=== PATIENT | female | born 1995 | race Two or more races ===

== ENCOUNTER 2021-01-22 12:24 | Emergency (ER) | payer OTHER ==
[~2021-01-22] VITALS: Ht 154.9 cm; Wt 66.3 kg
[2021-01-22 13:05] LABS: BASO % 0.3 % (0.0-1.0); EOS % 0.3 % (0.0-3.0); HEMATOCRIT 41.7 % (36.0-47.0); HEMOGLOBIN 13.1 g/dl (12.0-15.5); LYMPH # 1.6 10^3/uL (1.5-5.0); LYMPH % 12.2 % (24.0-44.0); MEAN CORPUSCULAR HGB CONC 31.4 g/dl (32.0-36.5); MEAN CORPUSCULAR VOLUME 92.5 fl (80.0-96.0); MONO # 0.9 10^3/uL (0.0-0.8); NEUTROPHILS # 10.3 10^3/uL (1.5-8.5); PLATELET COUNT, AUTOMATED 214 10^3/uL (150-450); RED BLOOD COUNT 4.51 10^6/uL (4.00-5.40); WHITE BLOOD COUNT 12.9 10^3/uL (4.0-10.0)
[2021-01-22] MEDS ORDERED: ACETAMINOPHEN 500 MG TAB PO ONE (13:05)
[2021-01-22 13:30] LABS: ALBUMIN 4.6 GM/DL (3.2-5.2); ALT/SGPT 19 U/L (12-78); BILIRUBIN,DIRECT 0.1 MG/DL (0.0-0.2); BILIRUBIN,TOTAL 0.4 MG/DL (0.2-1.0); LIPASE 181 U/L (73-393); TOTAL PROTEIN 8.4 GM/DL (6.4-8.2)
[2021-01-22 13:34] LABS: HCG, SERUM QUALITATIVE NEGATIVE (NEGATIVE)
--- NOTE | 2021-01-22 13:47 | REP ---
INDICATION: r/o constipation. COMPARISON: None. TECHNIQUE: AP view abdomen and pelvis. FINDINGS: There is mild scattered fecal material and air seen throughout the colon. No significantly dilated bowel loops are seen. No abnormal calcifications are visualized. The visualized osseous structures are unremarkable. IMPRESSION: Unremarkable KUB, mild air and fecal material scattered throughout the colon. <Electronically signed by Darío Chi > 01/22/21 [id number]
[2021-01-22] MEDS ORDERED: KETOROLAC 30 MG/ML 1ML VIAL IV ONE (14:25)
--- NOTE | 2021-01-22 14:41 | REP ---
INDICATION: LLQ pain radiating to groin, hematuria, r/o kidney stone COMPARISON: None TECHNIQUE: Axial noncontrast images from the lung bases to the pubic symphysis with coronal and sagittal reformations. This CT examination was performed using the following dose reduction techniques: Automated exposure control, adjustment of mA and/or kv according to the patient's size, and use of iterative reconstruction technique. FINDINGS: Acute left-sided obstructive uropathy with edematous enlargement to the left kidney, mild hydronephrosis and perinephric/periureteral stranding is appreciated secondary to a 3 mm calculus at the ureterovesical junction (series 201; image 119). The right kidney demonstrates 4 mm non-obstructing upper pole calculus without hydronephrosis. Liver, spleen, pancreas, gallbladder, and bilateral adrenal glands are normal. The enteric system is without obstruction or acute inflammatory process. Normal terminal ileum and appendix are identified in the right lower quadrant. Pelvis demonstrates relatively normal appearance of the bladder with left UVJ stone as described above. Normal uterus/adnexa noted. No ascites. No free air. No obvious adenopathy. Abdominal aorta without aneurysm. Musculoskeletal structures without acute osseous abnormality. Lung bases are clear. IMPRESSION: 1. Acute left-sided obstructive uropathy as described above with a 3 mm calculus at the left ureterovesical junction/bladder trigone. 2. 4 mm nonobstructing right renal calculus. <Electronically signed by Solitario Dillon > 01/22/21 [id number]
[2021-01-22] MEDS ORDERED: FLOM0.4C39 PO ×2 (14:54→15:00)
[2021-01-22] MEDS ORDERED: KETO10TAB PO ×2 (14:54→15:00)
[2021-01-22 15:06] VITALS: BP 118/81
== END 2021-01-22 15:09 | disposition home or self-care (01) ==
LOC: M ED 12:24
DX: N20.2 Calculus of kidney with calculus of ureter (principal); N23 Unspecified renal colic
CPT/HCPCS: 36415; 74018; 74176; 80047; 80076; 81001; 83690; 84703; 85025; 87086; 96374; 99284; J1885

== ENCOUNTER 2021-09-23 10:55 | Emergency (ER) | payer OTHER ==
[~2021-09-23] VITALS: Ht 157.5 cm; Wt 62.8 kg
[~2021-09-23 10:55] MED LIST: FLOM0.4C39 PO; KETO10TAB PO
--- OUTSIDE RECORDS SUMMARY | 2021-09-23 11:00 | CCD ---
Author Author [facility] Organization [facility] Address Unknown Phone Unavailable Care Team Providers Care Change Booth Attendant Name Role Phone NO, PCP Unavailable Unavailable Graham Eugene MD Unavailable Unavailable Graham Eugene MD Unavailable Unavailable Graham Eugene MD Unavailable Unavailable Graham Eugene MD Unavailable Unavailable Graham Eugene MD Unavailable Unavailable Graham Eugene MD Unavailable Unavailable Re-disclosure Warning The records that you are about to access may contain information from federally-assisted alcohol or drug abuse programs. If such information is present, then the following federally mandated warning applies: This information has been disclosed to you from records protected by federal confidentiality rules (42 CFR part 2). The federal rules prohibit you from making any further disclosure of this information unless further disclosure is expressly permitted by the written consent of the person to whom it pertains or as otherwise permitted by 42 CFR part 2. A general authorization for the release of medical or other information is NOT sufficient for this purpose. The Federal rules restrict any use of the information to criminally investigate or prosecute any alcohol or drug abuse patient.The records that you are about to access may contain highly sensitive health information, the redisclosure of which is protected by Article 27-F of the [place] State Public Health law. If you continue you may have access to information: Regarding HIV / AIDS; Provided by facilities licensed or operated by the [facility] Office of Mental Health; or Provided by the [facility] Office for People With Developmental Disabilities. If such information is present, then the following [facility] mandated warning applies: This information has been disclosed to you from confidential records which are protected by state law. State law prohibits you from making any further disclosure of this information without the specific written consent of the person to whom it pertains, or as otherwise permitted by law. Any unauthorized further disclosure in violation of state law may result in a fine or halfway sentence or both. A general authorization for the release of medical or other information is NOT sufficient authorization for further disc losure. Encounters Encounter Providers Location Date Indications Data Source(s ) Emergency Attender: Graham Eugene MDConsultant: PCP NO 09/13/2021 09:07:00 AM EDT - 09/13/2021 10:41:00 AM EDT [facility] Patient discharged. Immunizations Vaccine Date Status Description Data Source(s) COVID-19 VACCINE Pfizer 04/04/2021 12:00:00 AM EDT completed [place] Vaccine Series Complete: NOThis Data was Submitted to [facility]. Medications No Information Insurance Providers Payer name Policy type / Coverage type Policy ID Covered alliance party ID Covered alliance party's relationship to galindo Policy Galindo Plan Information [facility]LY [facility] ACTIVE DUTY [id number] SP [id number] [facility] HUMANA - O/P [id number] 18 [id number] Problems, Conditions, and Diagnoses Code Display Name Description Problem Type Effective Dates Data Source(s) K2900 Acute gastritis without bleeding Acute gastritis without bleeding Diagnosis 09/13/2021 09:07:00 AM EDT [facility] R1013 Epigastric pain Epigastric pain Diagnosis 09/13/2021 09:0 7:00 AM EDT [facility] Surgeries/Procedures No Information Results ID Date Data Source [id number] 09/13/2021 09:07:00 AM EDT [facility] 1 OrderSheet [facility] Emergency Department [address] [place] [address] Phone #: ext- [phone] 09/13/2021 09:00 Patient: BROOKLYNN LION Sex: F : 1995 Age: 26yWEIGHT:63.5 kg (S) HEIGHT:62 inches (S) BMI:25.6ALLERGIES: No Known Drug AllergyCHIEF COMPLAINT: abdominal painDIAGNOSIS: GastritisLAB ORDERSOrder Description Priority Entered Acknowledged InitialedUA Reflex to UA 09:17 09/13/2021 09:17 Ace,Culture Kristi Bello R.N. R.N.; Verbal order per; Graham EugeneHCG Urine Qual STAT 09:17 09/13/2021 09:17 Ace Bello Jennifer Jennifer R.N. R.N.; Verbal order per; rGaham EugeneCMP STAT 09:38 09/13/2021 Ack'd: 09:41 09:41 Ana Bello Jack ; Kristi BelloN. R.N.Lipase STAT 09:38 09/13/2021 Ack'd: 09:41 09:41 Ana Bello Jack ; Kristi BelloN. R.NTitusCBC w Diff STAT 09:38 09/13/2021 Ack'd: 09:41 09:41 Ana Bello Jack ; Kristi Bello R.N. R.NTitusDIAGNOSTIC STUDY ORDERSOrder Description Priority Entered Acknowledged InitialedUS Gall Bladder STAT 09:38 09/13/2021 Ack'd: 09:41 10:05 Ace,(Oxygen?(No)) Graham Eugene ; Kristi BelloNTitus R.NTitus Reason for Study: RUQ PainMEDICATION/IV/DRIP/FLUID ORDERSOrder Description Priority Entered Acknowledged Initialed 2 OrderSheet [facility] Emergency Department [address] [place] [address] Phone #: ext- [phone] 09/13/2021 09:00 --------- Patient: BROOKLYNN LION Sex: F : 1995 Age: 26yLidocaine Viscous 09:38 09/13/2021 09:41 Ace,PO 10 mL (NOW x1) Graham Eugene ; Kristi MondragonMaalox PO 30 mL 09:38 09/13/2021 09:41 Ana Bello Jack ; Kristi MondragonGENERAL ORDERSOrder Description Priority Entered Acknowledged Initialed[Electronically signed by Kristi Bello R.N. (10:41 09/13/2021)][Electronically signed by Graham Eugene (14:52 )][Electronically locked by Kristi Bello R.N. (10:41 09/13/2021)] Name Value Range Interpretation Code Description Data Chasity rce(s) Supporting Document(s) ID Date Data Source [id number] 09/13/2021 09:07:00 AM EDT [facility] 1 Medication Reconciliation Report [facility] Emergency Department [address] [place] [address] Phone #: ext- [phone] 09/13/2021 09:00 Patient: BROOKLYNN LION Sex: F : 1995 Age: 26yWeight: 63.5 kgHeight/Length: 62 in.BMI: 25.6ALLERGIES: No Known Drug AllergyThe patient's Home Medications are listed below:NONE.The source(s) of the original Home Medication information:patientThe following Medications were given to the patient in the Emergency Department:Lidocaine Viscous [PO] PO 10 mL, administered: 09:41 09/13/2021Maalox [PO] PO 30 mL, administered: 09:41 09/13/2021The following Medications were prescribed to the patient:omeprazole 20 mg tablet,delayed release Take 1 tablet once a day -- Dispense 25 tablet. Refills: 0.Substitution permitted.Pharmacy - [id number] - [address], [place] [phone]. . -- Graham Eugene Name Value Range Interpretation Code Description Data Chasity rce(s) Supporting Document(s) ID Date Data Source [id number] 09/13/2021 09:07:00 AM EDT [place] [address] Medication Administration Record [facility] Emergency Department [address] [place] [address] Phone #: ext- [phone] 09/13/2021 09:00 Patient: BROOKLYNN LION Sex: F : 1995 Age: 26yWeight: 63.5 kgHeight/Length: 62 inBMI: 25.6ALLERGIES: No Known Drug Allergy Date/Time Medication Administered Medication OrderedGiven LIDOCAINE VISCOUS [PO] Lidocaine Viscous PO 10 mL09:41 09/13/2021 Dose: 10 mL Oral Suspension PO (NOW x1)Kristi Bello R.N.Given MAALOX [PO] (CALCIUM CARBONATE Maalox PO 30 mL09:41 09/13/2021 ANTACID)Kristi Bello R.N. Dose: 30 mL Oral Suspension PO Name Value Range Interpretation Code Description Data [facility] Supporting Document(s) ID Date Data Source [id number] 09/13/2021 09:07:00 AM EDT [facility] 1 General Instructions [facility] Emergency Department [address] [place] [address] Phone #: ext- [phone] 09/13/2021 09:00 Patient: BROOKLYNN LION Sex: F : 1995 Age: 26yAcute gastritis. No alcoholic gastritis or hemorrhagic gastritis.INSTRUCTIONSWarnings: Further evaluation is necessary.GENERAL WARNINGS: Return or contact your physician immediately if your condition worsens orchanges unexpectedly, if not improving as expected, or if other problems arise.Your Current Medications: .No home medication.Prescription Medications:omeprazole 20 mg tablet,delayed release Take 1 tablet once a day -- Dispense 25 tablet. Refills: 0.Substitution permitted.[id number] - [address], [place] [id number]. .Understanding of the discharge instructions verbalized by patient.Follow-up with: [facility] Respective Team [place], , , [address], , [place], [address] Follow up in three days if not better. Call for an appointment. ADDITIONAL INFORMATIONGastritis (Adult) 2 General Instructions [facility] Emergency Department [address] [place] [address] Phone #: ext- [phone] 09/13/2021 09:00 Patient: BROOKLYNN LION Sex: F : 1995 Age: 26yGastritis is inflammation and irritation of the stomach lining. You can have it for a short time (acute) chirag long lasting (chronic). Infection with bacteria called H pylori most often causes gastritis. More thana third of people in the have these bacteria in their bodies. In many cases, H pylori causes noproblems or symptoms. In some people, though, the infection irritates the stomach lining and causesgastritis. H. pylori may be diagnosed through blood, stool, or breath tests, we well as through biopsyduring an endoscopy. Other causes of stomach irritation include drinking alcohol, smoking or jamie wingtobacco, or taking pain-relieving medicines called NSAIDs (such as aspirin or ibuprofen). Certaindrugs (such as cocaine) and immune conditions can also cause gastritis.Symptoms of gastritis can include: Belly pain or bloating Feeling full quickly Loss of appetite Nausea or vomiting Vomiting blood or having black stools Feeling more tired than usualAn inflamed and irritated stomach lining is more likely to develop a sore called an ulcer. To helpprevent this, gastritis should be treated.Home care 3 General Instructions [facility] Emergency Department [address] [place] [address] Phone #: ext- [phone] 09/13/2021 09:00 Patient: BROOKLYNN LION Sex: F : 1995 Age: 26yIf needed, our healthcare provider may prescribe medicines. If you have H pylori infection, treating itwill likely relieve your symptoms. Other changes can help reduce stomach irritation and help it heal. If you have been prescribed medicines for H pylori infection, take them as directed. Take all of the medicine until it is finished or your healthcare provider tells you to stop, even if you feel better. Your healthcare provider may advise you not to take NSAIDs. If you take daily aspirin for your heart or other medical reasons, do not stop without talking to your healthcare provider first. Don't drink alcohol. Stop smoking. Smoking can irritate the stomach and delay healing. As much as possible, stay away from second hand smoke.Follow-up careFollow up with your healthcare provider, or as advised by our staff. You may need testing to check forinflammation or an ulcer.When to seek medical adviceCall your healthcare provider for any of the following: Stomach pain that gets worse or moves to the lower right belly (appendix area) Chest pain that appears or gets worse, or spreads to the back, neck, shoulder, or arm Frequent vomiting (can't keep down liquids) Blood in the stool or vomit (red or black in color) Feeling weak or dizzy Shortness of breath Unexplained weight loss Fever of 100.4F (38C) or higher, or as directed by your healthcare provider [employer]. [address] [place] [address], [place] [address]. All rights reserved. This information is not intended as asubstitute for professional medical care. Always follow your healthcare professional's instructions. You have been given the following additional information: Gastritis (Adult) 4 General Instructions [facility] Emergency Department [address] [place] [address] Phone #: ext- [phone] 09/13/2021 09:00 Patient: BROOKLYNN LION Sex: F : 1995 Age: 26y(Electronically signed by Graham Eugene 09/13/2021 14:52) Name Value Range Interpretation Code Description Data Chasity rce(s) Supporting Document(s) ID Date Data Source [id number] 09/13/2021 09:07:00 AM EDT [facility] 1 Clinical Report - Nurses [facility] Emergency Department [address] [place] [address] Phone #: [phone]- [phone] 09/13/2021 09:00 Patient: BROOKLYNN LION Sex: F : 1995 Age: 26yTRIAGEArrived by private vehicle. Historian: patient. Unaccompanied.Triage time: late entry - 09:00 09/13/2021. Acuity: LEVEL 3.Chief Complaint: ABDOMINAL PAIN.Alert. No acute distress.Onset. (3 days ago). ( Pt states for the last 3 days she has been having upper abdominal pain with s omenausea; Pt states she has had similar symptoms in the past but usually goes away and this time is moreconstant and is waking her up out of her sleep. Pt states she still has her gallbladder.). She has hadnausea. She has had vomiting ("dry heaving"). 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 SEPSIS SCREEN NEGATIVE. No suspected or confirmedsigns of infection present. (09:18 09/13/2021). --09:18 09/13/21 Kristi Bello R.N.09:13 09/13/21. BP: 149/99. MAP: 115. HR: 88. RR: 18. O2 saturation: 100% on room air. Temp: 98.5 F(oral). Pain level now 08/26. --09:18 09/13/21 Kristi Bello R.N.Weight: 63.5 kg stated. Height/Length: 62 inches Per Patient. BMI: 25.6. --09:00 09/13/21 Kristi Bello R.N.MedicationsNone. --09:15 09/13/21 Kristi Bello R.N.AllergiesNo Known Drug Allergy. --09:15 09/13/21 Kristi Bello R.N.PRO BLEMS:no known problems.Medication/allergy information source: the patient. --09:18 09/13/21 Kristi Bello R.N.ADDITIONAL SURGERIES:Dental Surgery.Hip Surgery (X2). --09:16 09/13/21 Kristi Bello R.N. 2 Clinical Report - Nurses [facility] Emergency Department [address] [place] [address] Phone #: ext- [phone] 09/13/2021 09:00 Patient: BROOKLYNN LION Sex: F : 1995 Age: 26y History PAST MEDICAL HX: Immunizations: up-to-date and (Pt has had both COVID-19 vaccine). Last normal menstrual period- 08/17/2021. SOCIAL HX: Never smoker. No alcohol use or drug use. No recent travel. No known contact with a sick individual. She was offered HIV testing but declined. Patient education was provided. She was offered hepatitis C testing but declined. Patient education was provided. ( COVID screen negative). She has not traveled outside the [place] Infectious disease exposure: No infectious disease exposure. The patient was not exposed to Coronavirus. Mask placed on patient. Patient is not a known carrier of tuberculosis, hepatitis, HIV, MRSA or VRE. Patient is not a known carrier of CRE. SELF HARM ASSESSMENT: Self harm assessment was performed. The patient answered "no" to the question(s) "Do you have thoughts of harming or killing yourself?" and "Do you have a plan for harming or killing yourself?". ABUSE ASSESSMENT: Abuse assessment. The patient had positive responses to the question(s) "Do you feel safe in your home?". Abuse denied. No suspicion of abuse. No report of abuse. NUTRITIONAL RISK ASSESSMENT: The nutritional risk assessment revealed no deficiencies. FUNCTIONAL ASSESSMENT: Functional asse ssment: no impairments noted. LEARNING NEEDS ASSESSMENT: The learning needs assessment revealed no barriers. FALL RISK ASSESSMENT: Fall risk assessment completed. No risk factors identified. SKIN INTEGRITY ASSESSMENT: Skin integrity risk assessment completed. No skin integrity risk identified. --09:18 09/13/21 Kristi Bello R.N. FAMILY HX: No significant family medical history. --09:42 09/13/21 Graham Eugene. Interventions Identification band on patient. --09:18 09/13/21 Kristi Bello R.N.PHYSICAL ASSESSMENTGENERAL / NEURO / PSYCH: Alert. Oriented X 4. Appears in pain.HEENT: Mucous membranes are pink.RESPIRATORY: Respirations not labored. Breath sounds within normal limits.CVS: Capillary refill less than 2 seconds.GI / : The patient has had nausea. Emesis noted. (please see triage note). Abdomen soft.Abdominal tenderness in the epigastric area. Guarding present. No rebound tenderness. Bowel soundswithin normal limits. No diarrhea. ( Last BM yesterday and was "like gustabo" per pt).SKIN: Skin is warm and dry. --09:20 09/13/21 Kristi Bello R.N. 3 Clinical Report - Nurses [facility] Emergency Department [address] [place] [address] Phone #: ext- [phone] 09/13/2021 09:00 Patient: BROOKLYNN LION Sex: F : 1995 Age: 26yNURSING PROGRESS NOTESNIBP monitor and pulse oximeter placed on patient; monitor alarms on. Patient gowned. Reassurancegiven. Three patient identifiers checked. Call light placed in reach. Side rails up x 2. Bed placed inlowest position. Brakes of bed on. Patient ready for evaluation- ED physician notified. --09:17 09/13/21Kristi Bello R.N. Patient ID band checked for patient name and birthdate: patient confirmed. Instructions provided to collect clean catch urine and patient verbalized understanding. Clean catch urine collected; sample sent to lab for urinalysis and HCG. Specimen labeled in the presence of the patient. --09:17 09/13/21 Kristi Bello R.N. late entry - 09:40 09/13/21. Patient transported to sonogram by wheelchair with mask and qc lab technician. --10:05 09/13/21 Nadeem Bello R.N. 09:41 09/13/2021 Lidocaine Viscous PO Oral Suspension 10 mL given. Allergies verified and confirmed 5 rights. Information reviewed with patient including reason for taking this medication, signs of allergic reaction and precautions. Verbalizes understanding. --09:41 09/13/21 Kristi Bello R.N. 09:41 09/13/2021 Maalox (Calcium Carbonate Antacid) PO Oral Suspension 30 mL given. Allergies verified and confirmed 5 rights. Information reviewed with patient including reason for taking this medication, signs of allergic reaction and precautions. Verbalizes understanding. --09:41 09/13/21 Kristi Bello R.N. late entry - 10:00 09/13/21. Patient returned from sonogram by wheelchair with mask and qc lab technician. --10:05 09/13/21 Kristi Bello R.N. 10:00 09/13/21. BP: 126/94. MAP: 104. HR: 84. RR: 16. O2 saturation: 100% on room air. Pain level now: 0/10. --10:06 09/13/21 Kristi Bello R.N. Reassessment acuity: LEVEL 3. Rounding: Pain: assessed pain level and denies pain. Position: states comfortable. Proximity of possessions / care items: call light within easy reach. Plug ins: checked status of equipment in use; located all cords, tubes, and lines to prevent fall hazard. Set expectations: advised patient of rounding protocol timing and asked if they needed anything else at this time. Reassessment after medication administered. Pain gone now. She reports no complaints, she is calm and resting quietly and she has had no adverse reaction. Overall patient status is improved- she states feels better. GI / : The patient reports abdominal pain is still present but improving. Denies vomiting. --10:06 09/13/21 Kristi Bello R.N. 10:07 09/13/2021 Lidocaine Viscous PO Response: no adverse reaction pain is gone now. Symptoms have improved the patient feels better. --10:07 09/13/21 Kristi Bello R.N. 10:07 09/13/2021 Maalox PO Response: no adverse reaction pain is gone now. Symptoms have improved the patient feels better. --10:07 09/13/21 Kristi Bello R.N. 4 Clinical Report - Nurses [facility] Emergency Department [address] [place] [address] Phone #: ext- [phone] 09/13/2021 09:00 Patient: BROOKLYNN LION Sex: F : 1995 Age: 26yDISPOSITION / DISCHARGE Departure time: 10:41 09/13/2021. Condition at departure: stable. No learning barriers present. Discharge instructions provided and reviewed with the patient. Reviewed warnings (please see paper copy). Reviewed medication(s) side effects, precautions, dosing and course information. Prescription(s) sent electronically to pharmacy (Omeprazole). Patient verbalized understanding. Written instructions provided in Cambodian. ( F/U [facility]). The patient was discharged by the physician. She was discharged home and unaccompanied at time of discharge. She left ambulatory and via private vehicle. Patient driving. --10:41 09/13/21 Kristi Bello R.N. 10:37 09/13/21. BP: 132/93. MAP: 106. HR: 79. RR: 16. O2 saturation: 100% on room air. Temp: 98.5 F (temporal). Pain level now: 07/27. ED physician notified. --10:41 09/13/21 Kristi Bello R.N.Locked/Released at 09/13/2021 10:41 by Kristi Bello R.N. Name Value Range Interpretation Code Description Data Chasity rce(s) Supporting Document(s) ID Date Data Source [id number] 09/13/2021 09:07:00 AM EDT [facility] 1 Clinical Report - Physicians/Mid Levels [facility] Emergency Department [address] [place] [address] Phone #: ext- [phone] 09/13/2021 09:00 Patient: BROOKLYNN LION Sex: F : 1995 Age: 26y Time Seen: 09:32 09/13/2021. Arrived- By private vehicle. Historian- patient.HISTORY OF PRESENT ILLNESS Chief Complaint: ABDOMINAL PAIN. This started 2 days and is still present. It is described as "pain" and sharp. No radiation. It is described as located in the epigastric area. Modifying factors- worsened by food. The patient has had nausea. No loss of appetite, vomiting or diarrhea. No additional abdominal pain. (Two days of upper abdominal pain. She took tums and payton seltzer without any relief. No lower abdominal pain. No fever or chills. Some constipation but that is not abnormal for her). No recent travel. Similar symptoms previously. None. Recent medical care: Not recently seen/assessed.REVIEW OF SYSTEMSThe patient has had constipation, abdominal pain and constipation. No black stools, difficulty withurination or urination, pain with urination or fever. No headache, sore throat, blurred vision, chest pain ordifficulty breathing. No joint pain, skin rash, back pain or pain or weight loss. No cough, diarrhea, urinaryfrequency, hematuria or pelvic pain. No headache. Denies current . Last bowel movement-yesterday. All other systems reviewed and are negative.PAST HISTORYSee nurses notes. No history of peptic ulcer. Problems: no known problems. Additional Surgeries: Dental Surgery. Hip Surgery. (X2). Medications: None. Allergies: No Known Drug Allergy.SOCIAL HISTORYNever smoker. 2 Clinical Report - Physicians/Mid Levels [facility] Emergency Department [address] [place] [address] Phone #: ext- [phone] 09/13/2021 09:00 Patient: BROOKLYNN LION Sex: F : 1995 Age: 26yFAMILY HISTORYNo significant family medical history.ADDITIONAL NOTESThe nursing notes have been reviewed.PHYSICAL EXAMAppearance: Alert. Oriented X3. No acute distress.Eyes: Pupils equal, round and reactive to light.ENT: Nose normal. Pharynx normal.Neck: Normal inspection. Neck supple.CVS: Normal heart rate and rhythm. Heart sounds normal. Pulses normal.Respiratory: No respiratory distress. Breath sounds normal. Chest nontender.Abdomen: Soft. Moderate tenderness in the epigastric area. Bowel sounds normal. No organomegaly.No mass.Back: Normal inspection. No CVA tenderness.Skin: Skin warm and dry. Normal skin color. No rash. Normal skin turgor.Extremities: No lower extremity edema.Ne uro: Oriented X 3. No motor deficit. No sensory deficit.LABS, X-RAYS, AND EKGLaboratory Tests: CMP: ([place]: 09/13/2021 09:44) ( MsgRcvd 09/13/2021 10:10) Final results Test Result Flag Units (Reference) COMPREHENSIVE METABOLIC PANEL COMPREHENSIVE METABOLIC PANEL SODIUM 139 mEq/L (134 - 153) POTASSIUM 4.0 mEq/L (3.6 - 5.0) CHLORIDE 100 mEq/L (98 - 107) CO2 28 MEQ/L (22 - 30) GLUCOSE 92 MG/DL (70 - 99) BUN 13 MG/DL (7 - 21) CREATININE 0.7 MG/DL (0.7 - 1.5) BUN/CREAT 19 (8 - 27) TOTAL PROTEIN 7.3 G/DL (6.3 - 8.2) ALBUMIN 4.9 G/DL (3.9 - 5.0) GLOBULIN 2.4 GM/DL (2.4 - 3.2) A/G RATIO 2.0 (0.8 - 2.0) CALCIUM 10.0 MG/DL (8.4 - 10.2) TOTAL BILI <0.7 MG/DL (0.2 - 1.3) ALKALINE PHOS 47 U/L (38 - 126) SGOT/AST 24 U/L (5 - 40) SGPT/ALT 16 U/L (7 - 56) ANION GAP 11.0 mmol/L (8.0 - 16.0) AGE 26 yrs NON-AA GFR >60 mL/min AFR AMER GFR >60 mL/min Male GFR Interprentation 20-49 yrs >60 mL/min Normal 50-59 yrs >56 mL/min Normal 60-69 yrs >49 mL/min Normal 70-79yrs >42 mL/min Normal 80 and above >35 mL/min Normal Female GFR Interpretation 20-39 yrs >60 mL/min Normal 40-49 yrs >58 mL/min 3 Clinical Report - Physicians/Mid Levels [facility] Emergency Department [address] [place] [address] Phone #: ext- [phone] 09/13/2021 09:00 Patient: BROOKLYNN LION Sex: F : 1995 Age: 26yNormal 50-59 yrs >51 mL/min Normal 60-69 yrs >45 mL/min Vuhkzj26-90 yrs >39 mL/min Normal 80 and above >32 mL/min NormalLipase: ([place]: 09/13/2021 09:44) ( MsgRcvd 09/13/2021 10:10) Final results Test Result Flag Units * *(Reference) LIPASE 28 U/L (13 - 60)CBC w Diff: ([place]: 09/13/2021 09:44) ( MsgRcvd 09/13/2021 09:52) Final results Test Result Flag Units (Reference) CBC W/AUTOMATED DIFF COMPLETE BLOOD COUNT WBC 6.0 10/uL (4.2 - 11.0) RBC 4.14 L 10/uL (4.20 - 5.40) HEMOGLOBIN 12.1 g/dL (12.0 - 16.0) HEMATOCRIT 36.9 L % (37.0 - 47.0) MCV 89.1 fL (81.0 - 101) MCH 29.2 pg (27.0 - 34.0) MCHC 32.8 g/dL (31.0 - 36.0) RDW 13.9 % (11.5 - 14.5) PLATELETS 206 10/uL (150 - 450) MPV 11.0 H fL (7.4 - 10.4) NEUT 73.6 % (37.0 - 80.0) LYMPH 20.2 L % (25.0 - 40.0) MONO 5.4 % (3.0 - 8.0) EOS 0.5 % (0.0 - 7.0) BASO 0.3 % (0.0 - 2.5) %IG 0.0 % (0.0 - 0.0) %NRBC 0.0 % (0.0 - 0.0) #NEUT 4.40 10/uL (2.00 - 6.90) #LYMPH 1.21 10/uL (0.60 - 3.40) #MONO 0.32 10/uL (0.00 - 0.90) #EOS 0.03 10/uL (0.00 - 0.70) #BASO 0.02 10/uL (0.00 - 0.20) #IG 0.00 10/uL (0.00 - 0.10) #NRBC 0.00 10/uL (0.00 - 0.00) MANUAL DIFF NOT INDICATED RBC MORPH NOT INDICATEDUS Gall Bladder: ([place]: 09/13/2021 09:38) ( MsgRcvd 09/13/2021 11:20) Final results Exam [facility] [address] [place] [address] PHONE: [phone] FAX: [phone] Name .................. : AMISHA Hubbard Acct Number.................. : [id number] ROOM. ................. : VT-03 MR Number ................... : [id number] Stay type ............. : E/R Discharge Date......... ... : Admit Date ......... : 09/13/21 Admit Phys .................... : ANA Carpio Date of ....... : 1995 Family Phys ................... : NO PCP Phone .................. : [phone] Age ................................ : 26 Film# .................. .:[id number] Sex ................................. : F Unsigned transcriptions are preliminary reports and do not represent a medical or legal document [facility] GALLBLADDER [id number] COMPLETE:09/13/21 10:23 [facility] [address] Reason(s): RUQ Pain 4 Clinical Report - Physicians/Mid Levels [facility] Emergency Department [address] [place] [address] Phone #: ext- [phone] 09/13/2021 09:00 Patient: BROOKLYNN LION Sex: F : 1995 Age: 26y ULTRASOUND RIGHT UPPER QUADRANT INDICATION: Upper abdominal pain and nausea 3 days COMPARISON: None FINDINGS: LIVER: Normal echogenicity. No focal lesions identified. GALLBLADDER/BILIARY: No gallstones or gallbladder wall thickening. No pericholecystic fluid. The bile ducts are non-dilated. Common duct diameter 4.6 mm. PANCREAS: no significant abnormality. RIGHT KIDNEY: Length 10.9 cm. normal cortical thickness and echogenicity. No stones. Mild dilatation of the renal pelvis and calyces. IMPRESSION: 1. Mild right hydronephrosis. No stones identified. 2. No gallstones. Electronically Reviewed and Signed By Sarkis Kohler MD , 09/13/21 11:20, RAMA Transcribe Initials: DZ , Transcribe Date: 09/13/21 10:34, Dictation Date: Copy for: EMERGENCY DEPT via modem Copy for: 710 MED REC DISCHARGEDPage UA REFLEX TO UA CULTURE: ([place]: 09/13/2021 09:19) ( MsgRcvd 09/13/2021 10:05) Final results Test Result Flag Units (Reference) UA REFLEX TO UA CULTURE URINALYSIS SOURCE R COLOR yellow (NORMAL: Yello CLARITY clear (NORMAL: Clear SPEC GRAVITY 1.010 (1.001 - 1.030 pH 7 (5 - 9) GLUCOSE NORM (NORMAL: Negat BILIRUBIN NEG (NORMAL: Negat KETONE 15 A (NORMAL: Negat PROTEIN NEG (NORMAL: Negat NITRITE NEG (NORMAL: Negat BLOOD NEG (NORMAL: Negat LEUK EST 100 A (NORMAL: Negat UROBILINOGEN NOR (less than 1.0 MICROSCOPIC See Below 5 Clinical Report - Physicians/Mid Levels [facility] Emergency Department [address] [place] [address] Phone #: ext- [phone] 09/13/2021 09:00 Patient: BROOKLYNN LION Sex: F : 1995 Age: 26y WBC 10 - 15 A (NORMAL: NONE RBC 3 - 5 (NORMAL: NONE EPITHELIAL MODERATE A (NORMAL: NONE BACTERIA 1+ SMALL (NORMAL: NONE Beta-HCG, Qual Urine: ([place]: 09/13/2021 09:19) ( MsgRcvd 09/13/2021 09:53) Final results Test Result Flag Units (Reference) HCG URINE QUAL NEGATIVE (NORMAL: NEGAT HCG URINE QL REENTER NEGATIVE (NORMAL: NEGAT { KIT LOT # [id number] ){ KIT EXP DATE 12.17.22 ){ PROCEDURAL CONTROL VALID ).PROGRESS AND PROCEDURESCourse of Care: 09:43 09/13/21. Possible gastritis, hiatal hernia, GERD. No tenderness to RLQ. possiblecholecystitis 10:22 09/13/21. No pain in RUQ. Denies any dysuria or urinary symptoms. UA might be contaminated. laboratories normal and pain afebrile. No acute findings on ultrasound. Discharge on PPI, omeprazole. Patient/family counseled. Disposition: Discharged. Condition: stable.CLINICAL IMPRESSION Acute gastritis. No alcoholic gastritis or hemorrhagic gastritis.INSTRUCTIONS Warnings: Further evaluation is necessary. GENERAL WARNINGS: Return or contact your physician immediately if your condition worsens or changes unexpectedly, if not improving as expected, or if other problems arise. Your Current Medications: . No home medication. Prescription Medications: omeprazole 20 mg tablet,delayed release Take 1 tablet once a day -- Dispense 25 tablet. Refills: 0. Substitution permitted. Pharmacy - [id number] - [address], [place] [id number]. . 6 Clinical Report - Physicians/Mid Levels [facility] Emergency Department [address] [place] [address] Phone #: ext- [phone] 09/13/2021 09:00 Patient: BROOKLYNN LION Sex: F : 1995 Age: 26y Understanding of the discharge instructions verbalized by patient. [facility] with: [facility] Respective Team [place], , , [address] [facility] [address], , [place], [address] Follow up in three days if not better. Call for an appointment.(Electronically signed by Graham Eugene 09/13/2021 14:52) Name Value Range Interpretation Code Description Data Chasity rce(s) Supporting Document(s) ID Date Data Source [id number] 09/13/2021 11:20:00 AM EDT [facility] [address] [place] [address] PHONE: [phone] FAX: [phone] Name .................. : AMISHA Hubbard Acct Number.................. : [id number] ROOM. ................. : VT-03 MR Number ................... : [id number] Stay type ............. : E/R Discharge Date......... ... : Admit Date ......... : 09/13/21 Admit Phys .................... : ANA Carpio Date of ....... : 1995 Family Phys ................... : NO PCP Phone .................. : [phone] Age ................................ : 26 Film# .................. .:[id number] Sex ................................. : F Unsigned transcriptions are preliminary reports and do not represent a medical or legal document [facility] [id number] COMPLETE:09/13/21 10:23 KNB [id number] Reason(s): RUQ Pain ULTRASOUND RIGHT UPPER QUADRANT INDICATION: Upper abdominal pain and nausea 3 days COMPARISON: None FINDINGS: LIVER: Normal echogenicity. No focal lesions identified. GALLB LADDER/BILIARY: No gallstones or gallbladder wall thickening. No pericholecystic fluid. The bile ducts are non-dilated. Common duct diameter 4.6 mm. PANCREAS: no significant abnormality. RIGHT KIDNEY: Length 10.9 cm. normal cortical thickness and echogenicity. No stones. Mild dilatation of the renal pelvis and calyces. IMPRESSION: 1. Mild right hydronephrosis. No stones identified. 2. No gallstones. Electronically Reviewed and Signed By Sarkis Kohler MD , 09/13/21 11:20, JWVeronica Transcribe Initials: DULCE , Transcribe Date: 09/13/21 10:34, Dictation Date: Copy for: EMERGENCY DEPT via modem Copy for: 710 MED REC DISCHARGED Page 1 of 1 Name Value Range Interpretation Code Description Data Chasity rce(s) Supporting Document(s) ID Date Data Source [id number] 09/13/2021 10:09:00 AM EDT [facility] Name Value Range Interpretation Code Description Data Chasity rce(s) Supporting Document(s) Lipase [Enzymatic activity/volume] in Serum or Plasma 28 U/L 13 - 60 [facility] ID Date Data Source [id number] 09/13/2021 10:09:00 AM T [facility] Name Value Range Interpretation Code Description Data Chasity rce(s) Supporting Document(s) COMPREHENSIVE METABOLIC PANEL [facility] COMPREHENSIVE METABOLIC PANEL Sodium [Moles/volume] in Serum or Plasma 139 mEq/L 134 - 153 [facility] Potassium [Moles/volume] in Serum or Plasma 4.0 mEq/L 3.6 - 5.0 [facility] Chloride [Moles/volume] in Serum or Plasma 100 mEq/L 98 - 107 [facility] Carbon dioxide, total [Moles/volume] in Serum or Plasma 28 MEQ/L 22 - 30 [facility] Glucose [Mass/volume] in Serum or Plasma 92 MG/DL 70 - 99 [facility] BUN 13 MG/DL 7 - 21 [facility] al Creatinine [Mass/volume] in Serum or Plasma 0.7 MG/DL 0.7 - 1.5 [facility] BUN/CREAT 19 8 - 27 [facility] Protein [Mass/volume] in Serum or Plasma 7.3 G/DL 6.3 - 8.2 [facility] Albumin [Mass/volume] in Serum or Plasma 4.9 G/DL 3.9 - 5.0 [facility] Globulin [Mass/volume] in Serum by calculation 2.4 GM/DL 2.4 - 3.2 [facility] A/G RATIO 2.0 0.8 - 2.0 [facility] Calcium [Mass/volume] in Serum or Plasma 10.0 MG/DL 8.4 - 10.2 [facility] Bilirubin.total [Mass/volume] in Serum or Plasma <0.7 MG/DL 0.2 - 1.3 [facility] Alkaline phosphatase [Enzymatic activity/volume] in Serum or Plasma 47 U/L 38 - 126 [facility] Aspartate aminotransferase [Enzymatic activity/volume] in Serum or Plasma 24 U/L 5 - 40 [facility] Alanine aminotransferase [Enzymatic activity/volume] in Seru m or Plasma 16 U/L 7 - 56 [facility] Anion gap 3 in Serum or Plasma 11.0 mmol/L 8.0 - 16.0 [facility] AGE 26 yrs [facility] al NON-AA GFR >60 mL/min [facility] AFR AMER GFR >60 mL/min [facility] Male GFR In terprentation 20-49 yrs >60 mL/min Normal 50-59 yrs >56 mL/min Normal 60-69 yrs >49 mL/min Normal 70-79yrs >42 mL/min Normal 80 and above >35 mL/min Normal Female GFR Interpretation 20-39 yrs >60 mL/min Normal 40-49 yrs >58 mL/min Normal 50-59 yrs >51 mL/min Normal 60-69 yrs >45 mL/min Normal 70-79 yrs >39 mL/min Normal 80 and above >32 mL/min Normal ID Date Data Source [id number] 09/13/2021 09:52:00 AM EDT [facility] Name Value Range Interpretation Code Description Data Chasity rce(s) Supporting Document(s) CBC W/AUTOMATED DIFF [facility] COMPLETE BLOOD COUNT Leukocytes [#/volume] in Blood by Automated count 6.0 10^3/uL 4.2 - 1 1.0 [facility] Erythrocytes [#/volume] in Blood by Automated count 4.14 10^6/uL 4. 20 - 5.40 L [facility] Hemoglobin [Mass/volume] in Blood 12.1 g/dL 12.0 - 16.0 [facility] Hematocrit [Volume Fraction] of Blood by Automated count 36.9 % 3 7.0 - 47.0 L [facility] Erythrocyte mean corpuscular volume [Entitic volume] by Auto mated count 89.1 fL 81.0 - 101 [facility] Erythrocyte mean corpuscular hemoglobin [Entitic mass] by Automated count 29.2 pg 27.0 - 34.0 [facility] Erythrocyte mean corpuscular hemoglobin concentration [Mass/volume] by Automated count 32.8 g/dL 31.0 - 36.0 [facility] Erythrocyte distribution width [Ratio] by Automated count 13.9 % 11.5 - 14.5 [facility] Platelets [#/volume] in Blood by Automated count 206 10^3/uL 150 - 45 0 [facility] Platelet mean volume [Entitic volume] in Blood by Automated count 11.0 fL 7.4 - 10.4 H [facility] Neutrophils/100 leukocytes in Blood by Automated count 73.6 % 37. 0 - 80.0 [facility] Lymphocytes/100 leukocytes in Blood by Manual count 20.2 % 25.0 - 40.0 L [facility] Monocytes/100 leukocytes in Blood by Automated count 5.4 % 3.0 - 8.0 [facility] Eosinophils/100 leukocytes in Blood by Automated count 0.5 % 0.0 - 7.0 [facility] Basophils/100 leukocytes in Blood by Automated count 0.3 % 0.0 - 2.5 [facility] %IG 0.0 % 0.0 - 0.0 [facility] %NRBC 0.0 % 0.0 - 0.0 [facility] al Neutrophils [#/volume] in Blood by Automated count 4.40 10^3/uL 2.00 - 6.90 [facility] Lymphocytes [#/volume] in Blood by Automated count 1.21 10^3/uL 0.60 - 3.40 [facility] Monocytes [#/volume] in Blood by Automated count 0.32 10^3/uL 0.00 - 0.90 [facility] Eosinophils [#/volume] in Blood by Automated count 0.03 10^3/uL 0.00 - 0.70 [facility] Basophils [#/volume] in Blood by Automated count 0.02 10^3/uL 0.00 - 0.20 [facility] #IG 0.00 10^3/uL 0.00 - 0.10 [facility] #NRBC 0.00 10^3/uL 0.00 - 0.00 [facility] MANUAL DIFF NOT INDICATED [facility] RBC MORPH NOT INDICATED [facility] ID Date Data Source [id number] 09/17/2021 02:09:00 PM EDT [facility] Name Value Range Interpretation Code Description Data Chasity rce(s) Supporting Document(s) CULTURE URINE [facility] _CULTURE URINE_$$[id number]$$[id number]$$[id number]$$[id number]$$353329$$160349$$944602$$040079$$833247$$ 432098$$345876$$896482$$880451$$548494$$927138$$929382$$652945$$310041$$195924$$ 788252$$183552$$430949$$006466$$904667$$437905$$[id number]$$[id number] -- Continued on next page --Patient: AMISHA OVERTON Haydee Order: [id number] Page 2Culture: CULTURE URINE Status: Final ==== -- Continued on next page --Patient: AMISHA Hubbard Order: [id number] Page 2Culture: CULTURE URINE Status: Prelim =====$$[id number] DATE/TIME: 09/17/2021 14:06Culture: CULTURE URINE Status: FinalUrine Culture,Comprehensive: G7Lohlw urogenital flora10,000-25,000 colony forming units per mL Previous result entered on 09/15/2021 06:17 ET No growth after 18-24 hours.P1 Test performed by: [facility] #: [id number] [address] [place] [address] [id number] [facility] [id number] Director : Maik Boyd MD NPI #:Lathe Scalper Operator : 09/15/[email or web address] REF 09/17/21.1409.XMT.SENT REF ID Date Data Source [id number] 09/13/2021 10:03:00 AM EDT [facility] Name Value Range Interpretation Code Description Data Chasity rce(s) Supporting Document(s) UA REFLEX TO UA CULTURE [facility] URINALYSIS SOURCE R [facility] COLOR yellow NORMAL: Yellow [facility] CLARITY clear NORMAL: Clear [facility] Specific gravity of Urine by Test strip 1.010 1.001 - 1.030 [facility] pH 7 5 - 9 [facility] Glucose [Mass/volume] in Urine by Test strip NORM NORMAL: Negat colette [facility] Bilirubin.total [Presence] in Urine by Test strip NEG NORMAL: Negative [facility] Ketones [Presence] in Urine by Test strip 15 NORMAL: Negative A [facility] Protein [Mass/volume] in Urine by Test strip NEG NORMAL: Negat colette [facility] Nitrite [Presence] in Urine by Test strip NEG NORMAL: Negative [facility] BLOOD NEG NORMAL: Negative [facility] Leukocyte esterase [Presence] in Urine by Test strip 100 BRYANT L: Negative A [facility] Urobilinogen [Mass/volume] in Urine by Test strip NOR less paty n 1.0 mg/dL [facility] MICROSCOPIC See Below [facility] ital WBC 10 - 15 NORMAL: NONE SEEN A [facility] Erythrocytes [#/volume] in Urine by Test strip 3 - 5 NORMAL: NON E SEEN [facility] EPITHELIAL MODERATE NORMAL: NONE SEEN A [facility] Bacteria [Presence] in Urine sediment by Light microscopy 1+ SMALL NORMAL: NONE SEEN [facility] ID Date Data Source [id number] 09/13/2021 09:52:00 AM EDT [facility] Name Value Range Interpretation Code Description Data Chasity rce(s) Supporting Document(s) HCG URINE QUAL NEGATIVE NORMAL: NEGATIVE [facility] HCG URINE QL REENTER NEGATIVE NORMAL: NEGATIVE [facility] { KIT LOT # [id number] ){ KIT EXP DATE 12.17.22 ){ PROCEDURAL CONTROL VALID ) Procedure Social History No Information
--- OUTSIDE RECORDS SUMMARY | 2021-09-23 12:05 | CCD ---
Author Author [facility] Organization [facility] Address Unknown Phone Unavailable Care Team Providers Care Performance Reporter Name Role Phone NO, PCP Unavailable Unavailable [...] is protected by Article 27-F of the [place] State Public Health law. If you continue you may have access to information: Regarding HIV / AIDS; Provided by facilities licensed or operated by the [facility] Office of Mental Health; or Provided by the [facility] Office for People With Developmental Disabilities. If such information is present, then the following [facility] mandated warning applies: This information has [...] law may result in a fine or shelter sentence or both. A general authorization for the release of medical or other information is NOT sufficient authorization for further disc losure. Encounters Encounter Providers Location Date Indications Data Source(s ) Emergency Attender: Graham Eugene MDConsultant: PCP NO 09/13/2021 09:07:00 AM EDT - 09/13/2021 10:41:00 AM EDT [facility] Patient discharged. Immunizations Vaccine Date Status Description Data Source(s) COVID-19 VACCINE Pfizer 04/04/2021 12:00:00 AM EDT completed [facility] Vaccine Series Complete: NOThis Data was Submitted to [facility] Via [employer]. Medications No Information Insurance Providers Payer name Policy type / Coverage type Policy ID Covered libertarian ID Covered libertarian's relationship to galindo Policy Galindo Plan Information [facility] ACTIVE DUTY [id number] SP [id number] [facility] HUMANA - O/P [id number] 18 [id number] Problems, Conditions, and Diagnoses Code Display Name Description Problem Type Effective Dates Data Source(s) K2900 Acute gastritis without bleeding Acute gastritis without bleeding Diagnosis 09/13/2021 09:07:00 AM EDT [facility] R1013 Epigastric pain Epigastric pain Diagnosis 09/13/2021 09:0 7:00 AM EDT [facility] Surgeries/Procedures No Information Results ID Date Data Source [id number] 09/13/2021 09:07:00 AM EDT [facility] 1 OrderSheet [facility] [address] [place] [address] Phone #: ext- [phone] 09/13/2021 09:00 Patient: [...] Jennifer Jennifer R.N. R.N.; Verbal order per; Graham EugeneCMP STAT 09:38 09/13/2021 Ack'd: 09:41 09:41 [...] Description Priority Entered Acknowledged Initialed 2 OrderSheet [facility] [address] [place] [address] Phone #: ext- [phone] 09/13/2021 09:00 --------- [...] rce(s) Supporting Document(s) ID Date Data Source [id number] 09/13/2021 09:07:00 AM EDT [facility] 1 Medication Reconciliation Report [facility] [address] [place] [address] Phone #: ext- [phone] 09/13/2021 09:00 Patient: [...] Dispense 25 tablet. Refills: 0.Substitution permitted.Pharmacy - [facility] #[id number] - [address], [place] [id number]. . -- Graham Eugene Name Value Range Interpretation Code Description Data Chasity rce(s) Supporting Document(s) ID Date Data Source [id number] 09/13/2021 09:07:00 AM EDT [place] [address] Medication Administration Record [facility] [address] [place] [address] Phone #: ext- [phone] 09/13/2021 09:00 Patient: BROOKLYNN LION Sex: F [...] Name Value Range Interpretation Code Description Data [facility] Supporting Document(s) ID Date Data Source [id number] 09/13/2021 09:07:00 AM EDT [facility] 1 General Instructions [facility] [address] [place] [address] Phone #: ext- [phone] 09/13/2021 09:00 Patient: [...] Dispense 25 tablet. Refills: 0.Substitution permitted.[id number] - [address], [place] [id number]. .Understanding of the discharge instructions verbalized by patient.Follow-up with: [facility] Respective Team [place], , , [address], , [place], [address] Follow up in three days if not better. Call for an appointment. ADDITIONAL INFORMATIONGastritis (Adult) 2 General Instructions [facility] [address] [place] [address] Phone #: ext- [phone] 09/13/2021 09:00 Patient: BROOKLYNN LION Sex: F [...] should be treated.Home care 3 General Instructions [facility] [address] [place] [address] Phone #: ext- [phone] 09/13/2021 09:00 Patient: [...] as directed by your healthcare provider [employer]. [address] [place] [address], [place] [address]. All rights reserved. This information is not intended as asubstitute for professional medical care. Always follow your healthcare professional's instructions. You have been given the following additional information: Gastritis (Adult) 4 General Instructions [facility] [address] [place] [address] Phone #: ext- [phone] 09/13/2021 09:00 Patient: BROOKLYNN LION Sex: F : 1995 Age: 26y(Electronically signed by Graham Eugene 09/13/2021 14:52) Name Value Range Interpretation Code Description Data Chasity rce(s) Supporting Document(s) ID Date Data Source [id number] 09/13/2021 09:07:00 AM EDT [facility] 1 Clinical Report - Nurses [facility] [address] [place] [address] Phone #: bon- [phone] 09/13/2021 09:00 Patient: BROOKLYNN LION Sex: F [...] intake by patient was (water this morning [id number]; ate dinner last night at 1900).Treatment ARMATURE BANDER:(Tums last dose yesterday; Alkaseltzer last dose yesterday).SEPSIS [...] Bello R.N. 2 Clinical Report - Nurses [facility] [address] [place] [address] Phone #: ext- [phone] 09/13/2021 09:00 Patient: [...] Bello R.N. 3 Clinical Report - Nurses [facility] [address] [place] [address] Phone #: ext- [phone] 09/13/2021 09:00 Patient: [...] to sonogram by wheelchair with mask and radiology physician assistant. --10:05 09/13/21 Nadeem Bello R.N. 09:41 09/13/2021 [...] from sonogram by wheelchair with mask and radiology physician assistant. --10:05 09/13/21 Kristi Bello R.N. 10:00 09/13/21. [...] Bello R.N. 4 Clinical Report - Nurses [facility] [address] [place] [address] Phone #: ext- [phone] 09/13/2021 09:00 Patient: [...] Patient verbalized understanding. Written instructions provided in [place]. ( F/U [facility]). The patient was discharged by the physician. [...] rce(s) Supporting Document(s) ID Date Data Source [id number] 09/13/2021 09:07:00 AM EDT [facility] 1 Clinical Report - Physicians/Mid Levels [facility] [address] [place] [address] Phone #: ext- [phone] 09/13/2021 09:00 Patient: [...] smoker. 2 Clinical Report - Physicians/Mid Levels [facility] [address] [place] [address] Phone #: ext- [phone] 09/13/2021 09:00 Patient: BROOKLYNN LION Sex: F [...] mL/min 3 Clinical Report - Physicians/Mid Levels [facility] [address] [place] [address] Phone #: ext- [phone] 09/13/2021 09:00 Patient: BROOKLYNN LION Sex: F : 1995 Age: 26yNormal 50-59 yrs >51 mL/min Normal 60-69 yrs >45 mL/min Izgyib91-93 yrs >39 mL/min Normal 80 and above [...] ( MsgRcvd 09/13/2021 11:20) Final results Exam [facility] [address] [place] [address] PHONE: [phone] FAX: [phone] Name .................. : AMISHA Hubbard Acct Number.................. : [id number] ROOM. ................. : VT-03 MR Number ................... : [id number] Stay type ............. : E/R Discharge Date......... ... : Admit Date ......... : 09/13/21 Admit Phys .................... : ANA Carpio Date of ....... : 1995 Family Phys ................... : NO PCP Phone .................. : [phone] Age ................................ : 26 Film# .................. .:[id number] Sex ................................. : F Unsigned transcriptions are preliminary reports and do not represent a medical or legal document [facility] [employer] [id number] COMPLETE:09/13/21 10:23 [facility] [address] Reason(s): RUQ Pain 4 Clinical Report - Physicians/Mid Levels [facility] [address] [place] [address] Phone #: ext- [phone] 09/13/2021 09:00 Patient: [...] Below 5 Clinical Report - Physicians/Mid Levels [facility] [address] [place] [address] Phone #: ext- [phone] 09/13/2021 09:00 Patient: [...] NEGATIVE (NORMAL: NEGAT { KIT LOT # [id number] ){ KIT EXP DATE 12.17.22 ){ PROCEDURAL [...] tablet. Refills: 0. Substitution permitted. Pharmacy - [facility] #[id number] - [address], [place] [id number]. . 6 Clinical Report - Physicians/Mid Levels [facility] [address] [place] [address] Phone #: ext- [phone] 09/13/2021 09:00 Patient: BROOKLYNN LION Sex: F : 1995 Age: 26y Understanding of the discharge instructions verbalized by patient. Follow-up with: [facility] Respective Team [place], , , [address] [facility] [address], , [place], [address] Follow up in three days if not better. Call for an appointment.(Electronically signed by Graham Eugene 09/13/2021 14:52) Name Value Range Interpretation Code Description Data Chasity rce(s) Supporting Document(s) ID Date Data Source [id number] 09/13/2021 11:20:00 AM EDT [facility] [address] [place] [address] PHONE: [phone] FAX: [phone] Name .................. : AMISHA Hubbard Acct Number.................. : [id number] ROOM. ................. : VT-03 MR Number ................... : [id number] Stay type ............. : E/R Discharge Date......... ... : Admit Date ......... : 09/13/21 Admit Phys .................... : ANA Carpio Date of ....... : 1995 Family Phys ................... : NO PCP Phone .................. : [phone] Age ................................ : 26 Film# .................. .:[id number] Sex ................................. : F Unsigned transcriptions are preliminary reports and do not represent a medical or legal document [facility] [address] COMPLETE:09/13/21 10:23 [facility] [id number] Reason(s): RUQ Pain ULTRASOUND RIGHT UPPER QUADRANT [...] rce(s) Supporting Document(s) ID Date Data Source [id number] 09/13/2021 10:09:00 AM EDT [facility] Name Value Range Interpretation Code Description Data Chasity rce(s) Supporting Document(s) Lipase [Enzymatic activity/volume] in Serum or Plasma 28 U/L 13 - 60 [facility] ID Date Data Source [id number] 09/13/2021 10:09:00 AM T [facility] Name Value Range Interpretation Code Description Data Chasity rce(s) Supporting Document(s) COMPREHENSIVE METABOLIC PANEL [facility] COMPREHENSIVE METABOLIC PANEL Sodium [Moles/volume] in Serum or Plasma 139 mEq/L 134 - 153 [facility] Potassium [Moles/volume] in Serum or Plasma 4.0 mEq/L 3.6 - 5.0 [facility] Chloride [Moles/volume] in Serum or Plasma 100 mEq/L 98 - 107 [facility] Carbon dioxide, total [Moles/volume] in Serum or Plasma 28 MEQ/L 22 - 30 [facility] Glucose [Mass/volume] in Serum or Plasma 92 MG/DL 70 - 99 [facility] BUN 13 MG/DL 7 - 21 [facility] al Creatinine [Mass/volume] in Serum or Plasma 0.7 MG/DL 0.7 - 1.5 [facility] BUN/CREAT 19 8 - 27 [facility] al Protein [Mass/volume] in Serum or Plasma 7.3 G/DL 6.3 - 8.2 [facility] Albumin [Mass/volume] in Serum or Plasma 4.9 G/DL 3.9 - 5.0 [facility] Globulin [Mass/volume] in Serum by calculation 2.4 GM/DL 2.4 - 3.2 [facility] A/G RATIO 2.0 0.8 - 2.0 [facility] Calcium [Mass/volume] in Serum or Plasma 10.0 MG/DL 8.4 - 10.2 [facility] Bilirubin.total [Mass/volume] in Serum or Plasma <0.7 MG/DL 0.2 - 1.3 [facility] Alkaline phosphatase [Enzymatic activity/volume] in Serum or Plasma 47 U/L 38 - 126 [facility] Aspartate aminotransferase [Enzymatic activity/volume] in Serum or Plasma 24 U/L 5 - 40 [facility] Alanine aminotransferase [Enzymatic activity/volume] in Seru m or Plasma 16 U/L 7 - 56 [facility] Anion gap 3 in Serum or Plasma 11.0 mmol/L 8.0 - 16.0 [facility] AGE 26 yrs [facility] al NON-AA GFR >60 mL/min [facility] ital AFR AMER GFR >60 mL/min [facility] Male GFR In terprentation [...] >32 mL/min Normal ID Date Data Source [id number] 09/13/2021 09:52:00 AM EDT [facility] Name Value Range Interpretation Code Description Data Chasity rce(s) Supporting Document(s) CBC W/AUTOMATED DIFF [facility] COMPLETE BLOOD COUNT Leukocytes [#/volume] in Blood by Automated count 6.0 10^3/uL 4.2 - 1 1.0 [facility] Erythrocytes [#/volume] in Blood by Automated count 4.14 10^6/uL 4. 20 - 5.40 L [facility] Hemoglobin [Mass/volume] in Blood 12.1 g/dL 12.0 - 16.0 [facility] Hematocrit [Volume Fraction] of Blood by Automated count 36.9 % 3 7.0 - 47.0 L [facility] Erythrocyte mean corpuscular volume [Entitic volume] by Auto mated count 89.1 fL 81.0 - 101 [facility] Erythrocyte mean corpuscular hemoglobin [Entitic mass] by Automated count 29.2 pg 27.0 - 34.0 [facility] Erythrocyte mean corpuscular hemoglobin concentration [Mass/volume] by Automated count 32.8 g/dL 31.0 - 36.0 [facility] Erythrocyte distribution width [Ratio] by Automated count 13.9 % 11.5 - 14.5 [facility] Platelets [#/volume] in Blood by Automated count 206 10^3/uL 150 - 45 0 [facility] Platelet mean volume [Entitic volume] in Blood by Automated count 11.0 fL 7.4 - 10.4 H [facility] Neutrophils/100 leukocytes in Blood by Automated count 73.6 % 37. 0 - 80.0 [facility] Lymphocytes/100 leukocytes in Blood by Manual count 20.2 % 25.0 - 40.0 L [facility] Monocytes/100 leukocytes in Blood by Automated count 5.4 % 3.0 - 8.0 [facility] Eosinophils/100 leukocytes in Blood by Automated count 0.5 % 0.0 - 7.0 [facility] Basophils/100 leukocytes in Blood by Automated count 0.3 % 0.0 - 2.5 [facility] %IG 0.0 % 0.0 - 0.0 [facility] %NRBC 0.0 % 0.0 - 0.0 [facility] al Neutrophils [#/volume] in Blood by Automated count 4.40 10^3/uL 2.00 - 6.90 [facility] Lymphocytes [#/volume] in Blood by Automated count 1.21 10^3/uL 0.60 - 3.40 [facility] Monocytes [#/volume] in Blood by Automated count 0.32 10^3/uL 0.00 - 0.90 [facility] Eosinophils [#/volume] in Blood by Automated count 0.03 10^3/uL 0.00 - 0.70 [facility] Basophils [#/volume] in Blood by Automated count 0.02 10^3/uL 0.00 - 0.20 [facility] #IG 0.00 10^3/uL 0.00 - 0.10 [facility] #NRBC 0.00 10^3/uL 0.00 - 0.00 [facility] MANUAL DIFF NOT INDICATED [facility] RBC MORPH NOT INDICATED [facility] ID Date Data Source [id number] 09/17/2021 02:09:00 PM EDT [facility] Name Value Range Interpretation Code Description Data Chasity rce(s) Supporting Document(s) CULTURE URINE [facility] _CULTURE URINE_$$[id number]$$[id number]$$[id number]$$[id number]$$[id number]$$[id number]$$[id number]$$[id number]$$[id number]$$ [id number]$$556281$$224000$$830303$$419201$$[id number]$$[id number]$$769809$$[id number]$$[id number]$$ 213914$$219474$$610486$$[id number]$$[id number]$$184129$$[id number]$$[id number] -- Continued on next page --Patient: AMISHA OVERTON Haydee Order: [id number] Page 2Culture: CULTURE URINE Status: Final ==== -- Continued on next page --Patient: AMISHA Hubbard Order: [id number] Page 2Culture: CULTURE URINE Status: Prelim =====$$[id number]$$[id number] DATE/TIME: 09/17/2021 14:06Culture: CULTURE URINE Status: FinalUrine Culture,Comprehensive: [id number] urogenital flora10,000-25,000 colony forming units per mL Previous result entered on 09/15/2021 06:17 ET No growth after 18-24 hours.P1 Test performed by: [facility] #: [id number] [address] [place] [address] [id number] [facility] [id number] Director : Maik Boyd MD NPI #:Skein Yarn Drier : 09/15/21.0741.XMT.SENT REF 09/17/21.1409.XMT.SENT REF ID Date Data Source [id number] 09/13/2021 10:03:00 AM EDT [facility] Name Value Range Interpretation Code Description Data Chasity rce(s) Supporting Document(s) UA REFLEX TO UA CULTURE Health system URINALYSIS SOURCE R [facility] COLOR yellow NORMAL: Yellow [facility] CLARITY clear NORMAL: Clear [place] [facility] Specific gravity of Urine by Test strip 1.010 1.001 - 1.030 [facility] pH 7 5 - 9 [facility] Glucose [Mass/volume] in Urine by Test strip NORM NORMAL: Negat colette [facility] Bilirubin.total [Presence] in Urine by Test strip NEG NORMAL: Negative [facility] Ketones [Presence] in Urine by Test strip 15 NORMAL: Negative A [facility] Protein [Mass/volume] in Urine by Test strip NEG NORMAL: Negat colette [facility] Nitrite [Presence] in Urine by Test strip NEG NORMAL: Negative [facility] BLOOD NEG NORMAL: Negative [facility] Leukocyte esterase [Presence] in Urine by Test strip 100 BRYANT L: Negative A [facility] Urobilinogen [Mass/volume] in Urine by Test strip NOR less paty n 1.0 mg/dL [facility] MICROSCOPIC See Below [facility] ital WBC 10 - 15 NORMAL: NONE SEEN A [facility] Erythrocytes [#/volume] in Urine by Test strip 3 - 5 NORMAL: NON E SEEN [facility] EPITHELIAL MODERATE NORMAL: NONE SEEN A [facility] Bacteria [Presence] in Urine sediment by Light microscopy 1+ SMALL NORMAL: NONE SEEN [facility] ID Date Data Source [id number] 09/13/2021 09:52:00 AM EDT [facility] Name Value Range Interpretation Code Description Data Chasity rce(s) Supporting Document(s) HCG URINE QUAL NEGATIVE NORMAL: NEGATIVE [facility] HCG URINE QL REENTER NEGATIVE NORMAL: NEGATIVE [facility] { KIT LOT # [id number] ){ KIT EXP DATE 12.17.22 ){ PROCEDURAL CONTROL VALID ) Procedure Social History No Information
[2021-09-23 12:12] LABS: RSV AMPLIFICATION NEGATIVE (NEGATIVE)
[2021-09-23 13:08] LABS: BASO % 0.2 % (0.0-1.0); HEMATOCRIT 38.2 % (36.0-47.0); HEMOGLOBIN 12.1 g/dl (12.0-15.5); LYMPH % 9.3 % (24.0-44.0); MEAN CORPUSCULAR HGB CONC 31.7 g/dl (32.0-36.5); MEAN CORPUSCULAR VOLUME 91.6 fl (80.0-96.0); MONO # 0.4 10^3/uL (0.0-0.8); MONO % 3.9 % (2.0-8.0); NEUTROPHILS % 86.3 % (36.0-66.0); PLATELET COUNT, AUTOMATED 248 10^3/uL (150-450); RED BLOOD COUNT 4.17 10^6/uL (4.00-5.40); WHITE BLOOD COUNT 10.4 10^3/uL (4.0-10.0)
--- NOTE | 2021-09-23 14:05 | REP ---
INDICATION: pressure of the chest. COMPARISON: None. TECHNIQUE: PA and lateral FINDINGS: The lung gregg are well inflated without infiltrate, effusion, atelectasis or mass. There is no lateral pleural thickening, apical scarring or pneumothorax. The heart, mediastinal and hilar contours were normal. The aorta and airway are intact peer bony thorax shows no focal lesion. There is no free air under the diaphragm. IMPRESSION: 1. No acute cardiopulmonary change. <Electronically signed by Stephen Sotelo > 09/23/21 [id number]
--- NOTE | 2021-09-23 14:43 | REP ---
INDICATION: R flank pain, hematuria, hx of stones. COMPARISON: 01/22/2021 TECHNIQUE: Renal stone protocol with coronal and sagittal reconstructions. FINDINGS: CT abdomen: The lung bases remain clear. Heart is not enlarged. There is no pericardial thickening or effusion. I see no hiatal hernia. The liver, spleen, gallbladder, pancreas and adrenal glands are unremarkable. The right kidney shows mild hydronephrosis and hydroureter there is a right UPJ stone about 4.6 mm. This is best seen on axial image 58 and coronal image 41. There is no stone in the kidney or collecting system on the right the ureter distal to the stone is without dilatation or other stone. The left kidney shows no stone, hydronephrosis or mass there is no hydroureter or ureteral stone on the left. Bladder shows the wall thickness normal for low filling. No stone or mass. Small bowel loops and colon in the abdomen proper were unremarkable. Lung window review of all CT slices in the abdomen and pelvis is normal. Appendix is seen and normal. No aortic aneurysm, periaortic or other mesenteric/retroperitoneal adenopathy. Bone windows show spine and ribs unremarkable. CT pelvis: Sacrum, SI joints, pelvis and hips are unremarkable. No distal ureteral dilatation or stone. Bladder unremarkable. No ventral or inguinal hernia nor pathologic sized inguinal adenopathy. No abdominal or pelvic ascites. No pelvic adenopathy. No pelvic mass. Distal left colon, sigmoid and rectum unremarkable. Small bowel in the pelvis intact. No ventral or inguinal hernia nor pathologic sized inguinal adenopathy. No pelvic adenopathy. IMPRESSION: 1. A 4.6 mm right UPJ stone noted causing mild hydronephrosis and extrarenal pelvis with dilatation. There is no other renal or ureteral stone on either side and no bladder calculus. 2. No other significant finding. <Electronically signed by Stephen Sotelo > 09/23/21 [id number]
[2021-09-23] MEDS ORDERED: KETO10TAB PO (14:53)
[2021-09-23] MEDS ORDERED: FLOM0.4C39 PO (14:53)
[2021-09-23 15:00] VITALS: BP 135/77
== END 2021-09-23 15:02 | disposition home or self-care (01) ==
LOC: M ED 10:55
DX: R07.89 Other chest pain (principal); N20.0 Calculus of kidney; J45.909 Unspecified asthma, uncomplicated